=== PATIENT | female | born 1970 | race Caucasian/White ===

== ENCOUNTER → 2016-09-26 | Outpatient (CLI) | payer OTHER ==
[2016-09-26 18:38] LABS: URINE APPEARANCE TURBID (CLEAR); URINE BILIRUBIN NEG (NEG); URINE COLOR YELLOW; URINE EPITHELIAL CELL AUTO >30 /lpf (0-5); URINE NITRITE NEG (NEG); URINE SPECIFIC GRAVITY 1.021 (1.000-1.030); UROBILINOGEN NEG (NEG)
[2016-09-26 18:44] LABS: MANUAL MICROSCOPIC REQUIRED? NO; REVIEW REQ? NO
== END | disposition home or self-care (01) ==
LOC: C.LABSPEC 18:05
PROVIDERS: ATTEND Nurse Practitioner Adult Health
DX: M54.5 Low back pain (principal)

== ENCOUNTER → 2017-02-17 | Outpatient (CLI) | payer OTHER ==
[2017-02-17 09:35] LABS: BASO % 0.3 %; BASO ABS # 0.02 K/uL (0-0.2); COMPLETE YES; EOS % 1.9 %; IG% 0.4 %; LYMPH % 30.8 %; LYMPH ABS # 2.28 K/uL (1.2-3.4); MEAN CELL VOLUME 86.6 fL (80-100); MEAN CORPUSCULAR HEMOGLOBIN 29.4 pg (25-34); MEAN PLATELET VOLUME 10.3 fL (7.4-10.4); MONO % 6.7 %; NEUT % 59.9 %; PLATELET COUNT 293 K/uL (130-400); RED BLOOD COUNT 4.62 M/uL (4.2-5.4); WHITE BLOOD COUNT 7.41 K/uL (4.8-10.8)
[2017-02-17 10:11] LABS: BLOOD UREA NITROGEN 12 mg/dl (7-18); BUN/CREATININE RATIO 16.1 (10-20); CALCIUM 9.3 mg/dl (8.5-10.1); CARBON DIOXIDE 28 mmol/L (21-32); CHLORIDE 104 mmol/L (98-107); CHOLESTEROL 140 mg/dl (0-200); CREATININE 0.77 mg/dl (0.60-1.20); GLUCOSE 80 mg/dl (70-99); POTASSIUM 3.9 mmol/L (3.5-5.1); SODIUM 137 mmol/L (136-145); TRIGLYCERIDES 63 mg/dl (0-150); VERY LOW DENSITY LIPOPROT CALC 13 mg/dl
[2017-02-17 10:15] LABS: CHOLESTEROL/HDL RATIO 2.7; HDL CHOLESTEROL 51 mg/dl; LDL CHOLESTEROL CALCULATED 76 mg/dl
== END | disposition home or self-care (01) ==
LOC: C.LAB 08:32
PROVIDERS: ATTEND Nurse Practitioner Adult Health
DX: I10 Essential (primary) hypertension (principal)

== ENCOUNTER → 2017-05-18 | Outpatient (CLI) | payer OTHER ==
--- NOTE | 2017-05-21 07:48 | MAMMOGRAPHY REPORT ---
BILATERAL DIGITAL SCREENING MAMMOGRAM TOMOSYNTHESIS WITH CAD: 05/18/2017 CLINICAL HISTORY: Routine screening. Patient has no complaints. TECHNIQUE: Breast tomosynthesis in addition to standard 2D mammography was performed. Current study was also evaluated with a Computer Aided Detection (CAD) system. COMPARISON: Comparison is made to exams dated: 02/10/2016 mammogram and 02/04/2015 mammogram - [facility]. BREAST COMPOSITION: There are scattered areas of fibroglandular density in both breasts. FINDINGS: There is an asymmetry with associated questionable architectural distortion seen within th e right medial breast middle depth on the cc views, possibly projecting superiorly on the MLO view. Although this finding likely represents normal overlapping fibroglandular tissue, recommend additiona l imaging evaluation with spot compression tomosynthesis views and possible breast ultrasound for fur ther evaluation. The remainder of both breasts are stable compared to prior exams, without suspicious masses, calcific ations, or areas of architectural distortion noted. Other bilateral asymmetries are stable compared to prior exams. IMPRESSION: ACR BI-RADS CATEGORY 0: INCOMPLETE EVALUATION: NEED ADDITIONAL IMAGING EVALUATION Right breast asymmetry, for which additional imaging evaluation is recommended. The patient will be called to schedule an appointment. Approximately 10% of breast cancers are not detected with mammography. A negative mammographic report should not delay biopsy if a clinically suggestive mass is present. Ngoc Palomo M.D. ah/:05/18/2017 16:15:46 Aprn: Martha GOODEN)(Anahi), letter sent: [facility] 0 BI-RADS Code: ACR BI-RADS Category 0: Incomplete Evaluation: Need Additional Imaging Evaluation
== END | disposition home or self-care (01) ==
LOC: C.MAMM 15:45
PROVIDERS: ATTEND Nurse Practitioner Adult Health
DX: Z12.31 Encounter for screening mammogram for malignant neoplasm of breast (principal); N64.89 Other specified disorders of breast

== ENCOUNTER → 2017-05-30 | Outpatient (CLI) | payer OTHER ==
--- NOTE | 2017-05-30 14:12 | MAMMOGRAPHY REPORT ---
UNILATERAL RIGHT DIGITAL DIAGNOSTIC MAMMOGRAM TOMOSYNTHESIS AND TARGETED RIGHT ULTRASOUND: 05/30/2017 CLINICAL HISTORY: Callback from screening mammogram for right breast asymmetry. TECHNIQUE: Breast tomosynthesis in addition to standard 2D mammography was performed. Spot compress ion right CC and MLO 2-D and tomosynthesis images were obtained. COMPARISON: Comparison is made to exams dated: 05/18/2017 mammogram, 02/10/2016 mammogram, and mammogram - [facility]. BREAST COMPOSITION: There are scattered areas of fibroglandular density in the right breast. FINDINGS: The previously described asymmetries within the right superior and right medial breast par tially efface on the spot compression views. The asymmetries have the appearance of normal fibroglan dular tissue on the additional views, without a suspicious mass or architectural distortion seen. Targeted ultrasound was performed of the right upper inner quadrant in the region of the mammographic asymmetries. The background parenchymal echotexture is markedly heterogeneous which reduces the sen sitivity the exam. In the right breast at 2:00, approximately 4 cm from the nipple, there is an oval parallel hypoechoic 5 x 5 mm mass. The margins are not completely circumscribed on ultrasound. Add itionally, there is an oval hypoechoic non-circumscribed 6 x 3 x 5 mm mass in the right breast at 1:0 0, approximately 4 cm from the nipple. These 2 masses may or may not correspond with the mammographi c asymmetries. Recommend ultrasound guided core needle biopsy for further evaluation. IMPRESSION: ACR BI-RADS CATEGORY 4: SUSPICIOUS, TARGETED ULTRASOUND ACR BI-RADS CATEGORY 4: SUSPICIO US Two hypoechoic non-circumscribed masses in the right 1:00 and 2:00 breast on ultrasound, which may or may not correspond with the mammographic asymmetries. The mammographic asymmetries may represent no rmal fibroglandular tissue. Recommend ultrasound-guided core needle biopsy of both masses, with post -clip mammograms to evaluate for mammographicsonographic concordance. A phone call was made to the physician's office to confirm faxed results were received. The patient has been verbally notified of the results. She tentatively scheduled the biopsies before leaving the department. Approximately 10% of breast cancers are not detected with mammography. A negative mammographic report should not delay biopsy if a clinically suggestive mass is present. Ngoc Palomo M.D. ah/:05/30/2017 11:59:25 Child Care Leader: Rebecca Bustillos RT(R)(M), [facility] letter sent: Abnormal 4/5 BI-RADS Code: ACR BI-RADS Category 4: Suspicious Ultrasound BI-RADS: ACR BI-RADS Category 4: Suspici ous
== END | disposition home or self-care (01) ==
LOC: C.MAMM 10:55
PROVIDERS: ATTEND Nurse Practitioner Adult Health
DX: N63.12 Unspecified lump in the right breast, upper inner quadrant (principal)

== ENCOUNTER → 2017-06-01 | Outpatient (CLI) | payer OTHER ==
--- NOTE | 2017-06-01 13:22 | Discharge Instructions ---
Discharge Instructions Procedure Procedure Date: Jun 01, 2017. Reason for visit: 2 Right Breast Masses. Discharge Discharge Date: Jun 01, 2017. Discharge Diagnosis: status post breast biopsy Instructions Activity Recommendations: Additional Limitations (see below) Return to School/Work: no limitations Recommended Home Diet: No Limitations Provider Instructions: ACTIVITY RECOMMENDATIONS: * No lifting, pushing, pulling or exercising the affected side for three days. RETURN TO SCHOOL/WORK: * You may return to work/school after the procedure, but do not perform any strenuous activities for 24 to 48 hours. MEDICATIONS: * Tylenol (two 325 mg) every four to six hours if needed for mild pain (if not allergic to Tylenol). DIET: * Resume previous diet. SPECIAL CARE INSTRUCTIONS: * Keep biopsy site dry for 24 hours. May shower after 24 hours, but do not soak (bathe) incision. * May remove Tegaderm (plastic patch) tomorrow AFTER showering. * Leave the steri-strips on for one week. Allow the steri-strips to fall off by themselves. If not off after one week, you may remove them. You may place a Bandaid crosswise over the strips, if desired. * Apply ice 10 minutes on and 10 minutes off as needed. * Wear a bra at bedtime to sleep more comfortably for 2-3 days. * Your referring physician should have the results after approximately 5 to 7 business days. * Call for unusual bleeding, fever, drainage, etc or if you have any questions call during normal business hours or after hours call Dr Palomo, [phone]. FOLLOW UP VISIT: Follow-up with Referring Physician as scheduled. [facility] Recommendations: Call your doctor if: * Temperature above 101 degrees * Pain not relieved by pain medicine ordered * There is increased drainage or redness from any incision * You have any unanswered questions or concerns. Your Doctors Instructions noted above were prepared by provider Ngoc Palomo. Patient Signature Section: Patient Instructions Signature Page Anh Gould Patient (or Guardian) Signature/Date: I have read and understand the instructions given to me by my caregivers. Caregiver/RN/Doctor Signature/Date: The above-named patient and/or guardian has received patient instructions on this date. + Original Patient Signature Page (only) stays with chart. Please make copy for patient.
--- NOTE | 2017-06-01 15:32 | MAMMOGRAPHY REPORT ---
THIS REPORT HAS BEEN AMENDED. ULTRASOUND GUIDED BIOPSY RIGHT BREAST: 06/01/2017 CLINICAL HISTORY: Right 1:00 breast mass. PATIENT CONSENT: The procedure, risks and benefits were discussed with the patient and informed writt en consent was obtained. A timeout was performed immediately prior to the procedure. PROCEDURE DESCRIPTION: With ultrasound guidance, aseptic technique, and lidocaine as the local anesth etic (1% lidocaine to anesthetize the skin and 1% lidocaine with epinephrine to anesthetize the deepe r tissues), the mass of concern in the right 1:00 breast was sampled 4 times with a 14-gauge Achieve biopsy needle. Immediately thereafter, with ultrasound guidance, aseptic technique, and lidocaine as the local anesthetic, a metallic localizer wing-shaped clip was placed centrally in the mass. Direc t pressure was applied to the site immediately post procedure and hemostasis was achieved. Postproce dure unilateral mammograms were performed to confirm clip placement. The patient tolerated the proce dure without complication. She was given wound care instructions. [facility] COMPARISON: Comparison is made to exams dated: 05/30/2017 mammogram, 05/30/2017 ultrasound, 7 mammogram, 02/10/2016 mammogram, and 02/04/2015 mammogram - [facility]. IMPRESSION: ULTRASOUND GUIDED BIOPSY Ultrasound guided core needle biopsy of the right 1:00 breast mass, with clip placement. The patient will receive pathology results from her referring provider. Pending benign pathology results, recomm end follow-up mammograms and possible ultrasound of the right breast in 6 months. Ngoc Palomo M.D. ah/:06/01/2017 13:27:02 Tent Worker: Rebecca Lei, [facility] AMENDMENT: 06/13/2017 Ngoc Palomo M.D. Pathology results from right breast biopsies were reviewed on 06/13/2017. The pathology of the right 1 :00 breast mass yielded benign breast tissue, while the pathology of the right 2:00 breast mass yield ed sclerosing adenosis and fibroadenomatoid change. Findings are benign and concordant with the imag ing appearance. Recommend follow-up diagnostic tomosynthesis mammograms and possible ultrasound of t he right breast in 6 months.
--- NOTE | 2017-06-01 15:32 | MAMMOGRAPHY REPORT ---
ULTRASOUND GUIDED BIOPSY RIGHT BREAST: 06/01/2017 CLINICAL HISTORY: Right 2:00 breast mass. PATIENT CONSENT: The procedure, risks and benefits were discussed with the patient and informed writt en consent was obtained. A timeout was performed immediately prior to the procedure. PROCEDURE DESCRIPTION: With ultrasound guidance, aseptic technique, and lidocaine as the local anesth etic (1% lidocaine to anesthetize the skin and 1% lidocaine with epinephrine to anesthetize the deepe r tissues), the mass of concern in the right 2:00 breast was sampled 4 times with a 14-gauge Achieve biopsy needle. The biopsy was technically difficult due to the far posterior location of the mass, w ith poor visualization of the mass and distal aspect of the biopsy needle due to the deep location. Immediately thereafter, with ultrasound guidance, aseptic technique, and lidocaine as the local anest hetic, a metallic localizer clip (ribbon-shaped) was placed at the biopsy site. Direct pressure was applied to the site immediately post procedure and hemostasis was achieved. Postprocedure unilateral mammograms were performed to confirm clip placement. The patient tolerated the procedure without co mplication. She was given wound care instructions. The specimens were sent to pathology for analysis . COMPARISON: Comparison is made to exams dated: 06/01/2017 ultrasound biopsy, 05/30/2017 mammogram, 1 07/31/2016 ultrasound, 05/18/2017 mammogram, 02/10/2016 mammogram, and 02/04/2015 mammogram - [facility]. IMPRESSION: ULTRASOUND GUIDED BIOPSY Ultrasound guided core needle biopsy of the right 2:00 breast mass, with clip placement. The patient will receive pathology results from her referring provider. Pending benign pathology results, recom mend follow-up mammograms and possible ultrasound of the right breast in 6 months. Ngoc Palomo M.D. /:06/01/2017 13:27:42 Senior Storage Administrator: Rebecca Lei, [facility]
--- NOTE | 2017-06-01 15:34 | MAMMOGRAPHY REPORT ---
UNILATERAL RIGHT DIGITAL DIAGNOSTIC MAMMOGRAM TOMOSYNTHESIS: 06/01/2017 CLINICAL HISTORY: Status post right breast biopsies. TECHNIQUE: Breast tomosynthesis in addition to standard 2D mammography was performed. Postprocedura l right CC and ML tomosynthesis images including C views were obtained. COMPARISON: Comparison is made to exams dated: 06/01/2017 ultrasound biopsy, 05/30/2017 ultrasound, 05/18/2017 mammogram, 02/10/2016 mammogram, and 02/04/2015 mammogram - [facility]. BREAST COMPOSITION: There are scattered areas of fibroglandular density in the right breast. FINDINGS: A new ribbon-shaped biopsy marker clip is seen at the site of the biopsied mass in the rig ht 2:00 breast posteriorly. A new wing-shaped biopsy marker clip is seen at the site of the biopsied mass in the right 1:00 breast. No significant postbiopsy hematoma is seen. IMPRESSION: POST PROCEDURE IMAGING FOR MARKER PLACEMENT New biopsy marker clips status post right breast biopsies. Pathology results are pending. Pending b enign pathology results, recommend follow-up diagnostic tomosynthesis mammograms and possible ultraso und of the right breast in 6 months. Approximately 10% of breast cancers are not detected with mammography. A negative mammographic report should not delay biopsy if a clinically suggestive mass is present. Ngoc Palomo M.D. /:06/01/2017 13:43:59 Production Specialist: Rebecca Lei, [facility] BI-RADS Code: Post Procedure Imaging For Marker Placement
== END | disposition home or self-care (01) ==
LOC: C.MAMM 12:34
PROVIDERS: ATTEND Nurse Practitioner Adult Health
DX: N60.21 Fibroadenosis of right breast (principal)